=== PATIENT | male | born 1960 | race Caucasian/White ===

== ENCOUNTER → 2021-06-26 | Outpatient (CLI) | payer BC ==
[~2021-06-26] MED LIST: ASPIR 8181 MG PO; LIPITOR TAB 1010 MG PO; LOPRESSOR 25 MG25 MG PO; NORVASC 5 MG TAB5 MG PO; RANITIDINE HCL75 MG PO; SEROQUEL25 MG PO
== END ==
LOC: CT 10:07
DX: R31.0 Gross hematuria (principal); N20.1 Calculus of ureter
CPT/HCPCS: 36415; 82565; Q9967